=== PATIENT | male | born 1985 | race Caucasian/White ===

== ENCOUNTER 2018-09-19 15:16 | Emergency (ER) | payer BC ==
[~2018-09-19] VITALS: Ht 188 cm; Wt 155.1 kg
[2018-09-19 15:25] VITALS: BP 148/104
--- NOTE | 2018-09-19 15:48 | RAD ---
EXAM: Lumbar spine, 3 views. HISTORY: Pain. COMPARISON: None. FINDINGS: 3 views of the lumbar spine are obtained. There is no significant listhesis. The vertebral bodies are normal in height and the disc spaces are preserved. IMPRESSION: No acute osseous finding. Electronically signed by: Rayna Altamirano MD (09/19/2018 3:45 PM) [facility]
[2018-09-19] MEDS ORDERED: PRED20TA PO (15:59)
[2018-09-19] MEDS ORDERED: predniSONE 20 MG TABLET PO ONE (16:00)
[2018-09-19] MEDS ORDERED: HYDROcodone/APAP 5/325MG 1 TAB TABLET PO ONE (16:00)
--- NOTE | 2018-09-19 16:00 | PHYS DOC ---
Past History Past Medical History: No Pertinent History Past Surgical History: No Surgical History Alcohol Use: Rarely Drug Use: None Adult General Chief Complaint Chief Complaint: BACK PAIN OR INJURY [facility] HPI 33-year-old male presents with right low back pain that radiates into his right buttocks. 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 Yesterday, he had a large load around 2400 boxes. The patient does not remember any particular injury. When he woke up this morning, he had severe pain and stiffness in his right lower back and hip area. He has tried ibuprofen at home and has tried to stretch it out, but the pain is not improving. He has had this in the past. He has been given pain medication and then it goes away over a couple of days. He is not especially fond of the pain medication, but it does work. He has not done physical therapy. He has not had steroid injections. He denies any other injuries or complaints. No loss of bowel or bladder. No numbness or tingling. Review of Systems Review of Systems Constitutional: Denies fever or chills [] Eyes: Denies change in visual acuity, redness, or eye pain [] HENT: Denies nasal congestion or sore throat [] Respiratory: Denies cough or shortness of breath [] Cardiovascular: No additional information not addressed in HPI [] GI: Denies abdominal pain, nausea, vomiting, bloody stools or diarrhea [] : Denies dysuria or hematuria [] Musculoskeletal: Right low back pain[] Integument: Denies rash or skin lesions [] Neurologic: Denies headache, focal weakness or sensory changes [] Endocrine: Denies polyuria or polydipsia [] All other systems were reviewed and found to be within normal limits, except as documented in this note. Allergies Allergies Allergies Coded Allergies Type Severity Reaction Last Updated Verified No Known Drug Allergies 09/19/18 No Physical Exam Physical Exam Constitutional: Well developed, well nourished, no acute distress, non-toxic appearance. [] HENT: Normocephalic, atraumatic, bilateral external ears normal, oropharynx moist, no oral exudates, nose normal. [] Eyes: PERRLA, EOMI, conjunctiva normal, no discharge. [] Neck: Normal range of motion, no tenderness, supple, no stridor. [] Cardiovascular:Heart rate regular rhythm, no murmur [] Lungs & Thorax: Bilateral breath sounds clear to auscultation [] Abdomen: Bowel sounds normal, soft, no tenderness, no masses, no pulsatile masses. [] Skin: Warm, dry, no erythema, no rash. [] Back: Right sacroiliac joint tenderness[] Extremities: No tenderness, no cyanosis, no clubbing, ROM intact, no edema. [] Neurologic: Alert and oriented X 3, normal motor function, normal sensory function, no focal deficits noted. [] Psychologic: Affect normal, judgement normal, mood normal. [] Current Patient Data Vital Signs Vital Signs Date Time Temp Pulse Resp B/P (MAP) Pulse Ox O2 Delivery O2 Flow Rate FiO2 09/19/18 15:25 98.2 106 18 98 Room Air EKG EKG [] Radiology/Procedures Radiology/Procedures [] Course & Med Decision Making Course & Med Decision Making Pertinent Labs and Imaging studies reviewed. (See chart for details) The patient appears to have a strain of his right sacroiliac joint. Him 60 mg of prednisone the ED as well as one [place] 5/325. I will discharge him on 3 additional days of prednisone and a short course of [place]. I reviewed the drug database and he has no injuries. Patient is stable for discharge at this time [] Dragon Disclaimer Dragon Disclaimer This electronic medical record was generated, in whole or in part, using a voice recognition dictation system. Departure Departure: Impression: Primary Impression: Pain of right sacroiliac joint Disposition: HOME, SELF-CARE Condition: STABLE Referrals: PCP,BECKIE (PCP) Patient Instructions: Sacroiliac Joint Dysfunction Scripts Prednisone (PREDNISONE) 20 Mg Tablet 3 TAB PO DAILY for sacroiliitis for 3 Days, #9 TAB Start medication 09/20/18 Prov: JYOTI GARCIA DO 09/19/18 JYOTI GARCIA DO Sep 19, 2018 16:00
[2018-09-19] MEDS ORDERED: HYDR-3165 PO (16:02)
[2018-09-19] MEDS ORDERED: HYDROcodone/APAP 5/325MG 1 TAB TABLET ONE (16:05)
== END 2018-09-19 16:08 | disposition home or self-care (01) ==
LOC: ER 15:16
DX: M53.3 Sacrococcygeal disorders, not elsewhere classified (principal); M54.5 Low back pain
CPT/HCPCS: 72100; 99284; J7512

== ENCOUNTER 2019-03-13 21:29 | Emergency (ER) | payer BC ==
[~2019-03-13] VITALS: Ht 188 cm; Wt 159.2 kg
[~2019-03-13 21:29] MED LIST: HYDR-3165 PO; PRED20TA PO
[2019-03-13 21:35] VITALS: BP 141/89
[2019-03-13] MEDS ORDERED: PRED20TA PO (21:44)
[2019-03-13] MEDS ORDERED: AMOX1TAB61 PO (21:44)
[2019-03-13] MEDS ORDERED: CHLO15MO2 PO (21:44)
--- NOTE | 2019-03-13 21:44 | PHYS DOC ---
Past History Past Medical History: No Pertinent History Past Surgical History: No Surgical History Smoking: Cigarettes Alcohol Use: Rarely Drug Use: None Adult General Chief Complaint Chief Complaint: DENTAL PROBLEM HPI HPI 33-year-old male presents with report of right-sided dental pain and swelling to mandibular area which is been ongoing for the past 1-2 days. Patient does report history of having 3 teeth pulled on Saturday. Patient reports he has a appointment with his dentist tomorrow at 9 AM. Reports was unable to wait until tomorrow due to pain. Denies any fever. Denies trauma. Review of Systems Review of Systems Constitutional: Denies fever or chills Eyes: Denies redness or eye pain HENT: Denies nasal congestion or sore throat; reports dental pain and swelling Respiratory: Denies cough or shortness of breath Cardiovascular: Denies chest pain or palpitations GI: Denies abdominal pain, nausea, or vomiting : Denies dysuria or hematuria Musculoskeletal: Denies back pain or joint pain Integument: Denies rash or skin lesions Neurologic: Denies headache, focal weakness or sensory changes Complete systems were reviewed and found to be within normal limits, except as documented in this note. Allergies Allergies Allergies Coded Allergies Type Severity Reaction Last Updated Verified No Known Drug Allergies 09/19/18 No Physical Exam Physical Exam Constitutional: Well developed, well nourished, no acute distress, non-toxic appearance HENT: Normocephalic, atraumatic, oropharynx moist, poor dentition, post extraction sites noted to right maxillary molar and premolar areas, no bleeding, Right mandibular swelling and tenderness to 2nd premolar, no fluctuance noted Eyes: Conjunctiva normal, no discharge Neck: Normal range of motion, no tenderness, supple Lungs & Thorax: Atraumatic, no respiratory distress Skin: Warm, dry, no erythema, no rash Neurologic: Alert and oriented X 3, no focal deficits noted Psychologic: Affect normal, judgement normal EKG EKG [] Radiology/Procedures Radiology/Procedures [] Course & Med Decision Making Course & Med Decision Making Patient presents with report of right mandibular pain and swelling. History of prior right maxillary dental extractions. Area of pain not near recent extraction site. Patient has a appointment with his dentist in the morning. Patient also had received recent hydrocodone on 03/11/2019 of 12 tablets of 5/325 mg per [facility]. Patient advised would provide 1 hydrocodone tablet in department along with empiric antibiotic and symptomatic steroid. Patient to follow closely with his dentist. Patient stable for discharge with outpatient follow-up with PCP/dentist. Discussed findings and plan with patient, who acknowledges understanding and agreement. Eden Disclaimer Eden Disclaimer This electronic medical record was generated, in whole or in part, using a voice recognition dictation system. Departure Departure: Impression: Primary Impression: Dentalgia Disposition: HOME, SELF-CARE Condition: STABLE Referrals: PCPBECKIE (PCP) Patient Instructions: Toothache-Brief Additional Instructions: Please follow closely with your dentist for further evaluation and pain management. You may take over the counter Tylenol and Ibuprofen for pain in addition to steroid, mouth rinse and empiric antibiotics. Scripts Prednisone (PREDNISONE) 20 Mg Tablet 2 TAB PO DAILY for Dentalgia, #8 TAB Start this prescription in the AM, Saturday03/14/2019 Prov: ADAM SCHWARTZ DO 03/13/19 Amoxicillin/Potassium Clav (AUGMENTIN 875-125 TABLET) 1 Each Tablet 1 TAB PO BID for Dental Caries for 7 Days, #14 TAB 0 Refills Prov: ADAM SCHWARTZ DO 03/13/19 Chlorhexidine Gluconate (PERIDEX) 15 Ml Mouthwash 15 ML PO BID for Poor dentition for 5 Days, #473 ML 0 Refills Prov: ADAM SCHWARTZ DO 03/13/19 ADAM SCHWARTZ DO Mar 13, 2019 21:44
[2019-03-13] MEDS ORDERED: AMOXICILLIN/K CLAV 875/125MG TABLET. PO ONE (21:45)
[2019-03-13] MEDS ORDERED: HYDROcodone/APAP 5/325MG 1 TAB TABLET PO ONE (21:45)
[2019-03-13] MEDS ORDERED: DEXAMETHASONE 4 MG TABLET PO ONE (21:45)
== END 2019-03-13 21:50 | disposition home or self-care (01) ==
LOC: ER 21:29
DX: K08.89 Other specified disorders of teeth and supporting structures (principal); R22.0 Localized swelling, mass and lump, head; F17.210 Nicotine dependence, cigarettes, uncomplicated
CPT/HCPCS: 99284; J8540

== ENCOUNTER 2020-10-09 21:09 | Emergency (ER) | payer BC ==
[~2020-10-09] VITALS: Ht 188 cm; Wt 154.4 kg
[~2020-10-09 21:09] MED LIST changes: +AMOX1TAB61 PO; +CHLO15MO2 PO
--- NOTE | 2020-10-09 21:14 | PHYS DOC ---
Past History Past Medical History: No Pertinent History Past Surgical History: No Surgical History Smoking: Cigarettes Alcohol Use: Rarely Drug Use: None Adult General HPI HPI Patient 35-year-old male who presents with swelling around left eye that started this morning. States he didn't take any medications. Denies any recent traumas, travels, illnesses, fevers, changes in vision, eye pain, cold/flu/Covid symptoms, chest pain, shortness of breath, abdominal pain, nausea, vomiting. Review of Systems Review of Systems Review of systems otherwise unremarkable except noted in HPI Allergies Allergies Allergies Coded Allergies Type Severity Reaction Last Updated Verified No Known Drug Allergies 09/19/18 No Physical Exam Physical Exam Constitutional: Well developed, well nourished, no acute distress, non-toxic appearance. [] HENT: Normocephalic, atraumatic, bilateral external ears normal, oropharynx moist, no oral exudates, nose normal. [] Eyes: PERRLA, EOMI, conjunctiva normal, no discharge, left sided periorbital swelling and erythema. [] Neck: Normal range of motion, no tenderness, supple, no stridor. [] Cardiovascular:Heart rate regular rhythm, no murmur [] Lungs & Thorax: Bilateral breath sounds clear to auscultation [] Abdomen: Bowel sounds normal, soft, no tenderness, no masses, no pulsatile masses. [] Skin: Warm, dry, no erythema, no rash. [] Extremities: No tenderness, ROM intact, no edema. [] Neurologic: Alert and oriented X 3, no focal deficits noted. [] Psychologic: Affect normal, judgement normal, mood normal. [] EKG EKG [] Radiology/Procedures Radiology/Procedures [] Heart Score C/O Chest Pain: No Risk Factors: Risk Factors: DM, Current or recent (<one month) smoker, HTN, HLP, family history of CAD, obesity. Risk Scores: Risk Factors: DM, Current or recent (<one month) smoker, HTN, HLP, family history of CAD, obesity. Course & Med Decision Making Course & Med Decision Making Patient is a 35-year-old male who presents with left eye swelling and redness Vital signs not concerning. Physical exam noted above. Given clindamycin and Percocet. Discussed all findings with patient and gave education on periorbital cellulitis. For management at home. Advised on course of antibiotics. Advised to follow-up in the morning with primary care physician and set up a follow-up visit. Gave return precautions to the ED. Patient grateful, verbalized understanding and agreed with plan of discharge. [] Dragon Disclaimer Dragon Disclaimer This electronic medical record was generated, in whole or in part, using a voice recognition dictation system. Departure Departure: Impression: Primary Impression: Periorbital cellulitis of left eye Disposition: HOME / SELF CARE / HOMELESS Condition: GOOD Referrals: PCP,NO (PCP) CHEMA BAEZ MD Patient Instructions: Periorbital Cellulitis Additional Instructions: Thanks for coming into the emergency department tonight and allowing us to take care of you. Please read the attached information above carefully to go back over what we discussed. Please continue a Tylenol and ibuprofen regimen. Please take antibiotics as prescribed. Please call a primary care physician first thing in the morning to update on your ED visit and set up a follow-up visit. Please come back to the ED with new or concerning symptoms as discussed. Scripts Clindamycin Hcl (CLINDAMYCIN HCL) 300 Mg Capsule 1 CAP PO Q6HRS for cellulitis for 7 Days, #28 CAP Prov: MARIMAR SOTO MD 10/09/20 MARIMAR SOTO MD Oct 09, 2020 21:14
[2020-10-09 21:20] VITALS: BP 120/74
[2020-10-09] MEDS ORDERED: CLIN300C9 PO (21:27)
[2020-10-09] MEDS ORDERED: IBUPROFEN 600 MG TABLET. PO ONE ×2 (21:31→22:00)
[2020-10-09] MEDS ORDERED: CLINDAMYCIN HCL 150 MG CAPSULE PO ONE (22:00)
[2020-10-09] MEDS ORDERED: oxyCODONE/APAP 5/325 1 TAB TABLET PO ONE (22:00)
== END 2020-10-09 21:37 | disposition home or self-care (01) ==
LOC: ER 21:09
DX: L03.213 Periorbital cellulitis (principal); F17.210 Nicotine dependence, cigarettes, uncomplicated
CPT/HCPCS: 99284